=== PATIENT | female | born 1950 | race Caucasian/White ===

== ENCOUNTER 2022-05-30 06:31 | Outpatient (CLI) | payer MEDICARE, BC, SELFPAY ==
--- NOTE | 2022-05-30 08:43 | W.ANESCHARGE ---
Anesthesia Charges Start Date/Time Anesthesia Start Date: 05/30/22 Anesthesia Start Time: 07:34 Stop Date/Time Anesthesia Stop Date: 05/30/22 Anesthesia Stop Time: 08:34 Summary Emergency: No
--- NOTE | 2022-05-30 09:02 | W.ANESCHARGE ---
Anesthesia Charges Start Date/Time Anesthesia Start Date: 05/30/22 Anesthesia Start Time: 07:34 Stop Date/Time Anesthesia Stop Date: 05/30/22 Anesthesia Stop Time: 08:34 Summary Emergency: No
== END 2022-05-30 06:32 | disposition home or self-care (01) ==
PROVIDERS: PCP Family Medicine; Visit Provider Surgery
DX: Z12.11 Encounter for screening for malignant neoplasm of colon (principal)
CPT/HCPCS: 43239; 45380; 45385; 813; 88305

== ENCOUNTER 2022-09-19 13:47 | Outpatient (RCR) | payer MEDICARE, BC, SELFPAY ==
--- NOTE | 2022-07-29 15:14 | URNOTE ---
Received request for prior auth for Denosumab ([id number]). Pt has Medicare primary/BC supplement. Prior authorization is not required as services are based on medical necessity and follow medicare guidelines
[2022-09-10 08:24] LABS: Basophils Absolute Auto 0.06 K/uL (0.00-0.30); Basophils Percent Auto 0.6 % (0.0-3.0); Eosinophils Absolute Auto 0.09 K/uL (0.00-0.50); Eosinophils Percent Auto 0.9 % (0.0-7.0); Hematocrit 34.7 % (33.0-51.0); Hemoglobin* 11.3 gm/dL (12.0-16.0); Immature Reticulocyte Fraction 8.9 % (3.0-15.9); Lymphocytes Percent Auto 67.3 % (20-44); Mean Corpuscular HGB Conc 33 gm/dL (32-36); Mean Corpuscular Hemoglobin 32 pg (26-34); Mean Corpuscular Volume 99 fL (80-100); Monocytes Percent Auto 4.5 % (0.0-11.0); Neutrophils Percent Auto 26.7 % (42.0-72.0); Platelet Count* 254 K/uL (140-440); RDW Coefficient of Variation % 12.6 % (11.5-15.5); Reticulocyte Hemoglobin Equivi 31.1 pg (29.0-35.0); Reticulocyte Percent 1.7 % (0.5-2.0); Reticulocytes Absolute 0.06 # (0.03-0.08); White Blood Count* 10.43 K/uL (4.50-11.00)
[2022-09-10 08:37] LABS: Albumin* 4.3 g/dL (3.3-5.0); Chloride* 101 mmol/L (96-114)
[2022-09-10 08:38] LABS: Potassium* 3.6 mmol/L (3.6-5.1); Sodium* 140 mmol/L (135-149)
[2022-09-10 08:40] LABS: Alkaline Phosphatase* 79 U/L (40-150); Aspartate Amino Transferase* 41 U/L (12-35); Bilirubin Total* 0.4 mg/dL (0.1-1.5); Blood Urea Nitrogen* 19 mg/dL (7-30); Carbon Dioxide* 31 mmol/L (20-32); Estimated Glomerular Filt Rate 61 ml/min; Lactate Dehydrogenase* 491 U/L (313-618); Total Protein* 7.8 g/dL (6.0-8.3)
[2022-09-10 08:41] LABS: Alanine Aminotransferase* 25 U/L (4-35); Calcium* 9.4 mg/dL (8.4-10.6); Glucose* 68 mg/dL (60-115)
[2022-09-10 08:51] LABS: Slide Review Reflex Yes
[2022-09-10 08:52] LABS: Slide Review Acceptable Review (Acceptable)
[2022-09-10 09:16] LABS: Ferritin* 22.2 ng/mL (11.1-264.0)
[2022-09-13 02:14] LABS: Albumin 3.81 g/dL (3.75-5.01); Alpha 1 Globulin 0.36 g/dL (0.19-0.46); Alpha 2 Globulin 0.69 g/dL (0.48-1.05); Immunofixation IFE Done; Immunoglobulin A 89 mg/dL (68-408); Immunoglobulin G 1472 mg/dL (768-1632); Immunoglobulin M 586 mg/dL (35-263); Kappa Qnt Free Light Chains 30.05 mg/L (3.30-19.40); Kappa/Lambda Light Chain Ratio 1.57 (0.26-1.65); Lambda Qnt Free Light Chains 19.09 mg/L (5.71-26.30); Monoclonal Protein 0.66 g/dL; Total Protein, Serum 7.3 g/dL (6.3-8.2)
[2022-09-19] MEDS: DENOSUMAB 60 MG/ML SYRINGE SUBCUT (14:21)
[2022-09-19 15:16] LABS: Iron* 48 ug/dL (37-170)
[2022-09-19 15:26] LABS: Percent Iron Saturation 13 % (20-50); Total Iron Binding Capacity 359 ug/dL (265-497)
== END 2023-03-09 23:59 | disposition home or self-care (01) ==
LOC: CCIC 13:47
PROVIDERS: PCP Family Medicine; Referring Provider Family Medicine; Visit Provider Internal Medicine Hematology & Oncology
DX: D50.9 Iron deficiency anemia, unspecified (principal); D47.2 Monoclonal gammopathy; D72.820 Lymphocytosis (symptomatic)
CPT/HCPCS: 36415; 80053; 82728; 82784; 83520; 83540; 83550; 83615; 84155; 84165; 85025; 85045; 86334; 96372; 99212; 99213; 99214

== ENCOUNTER 2022-10-10 14:56 | Outpatient (CLI) | payer MEDICARE, BC, SELFPAY | END 2022-10-10 14:57 | disposition home or self-care (01) | LOC: NFLDUCREF 14:56 | PROVIDERS: PCP Family Medicine; Visit Provider Student in an Organized Health Care Education/Training Program | DX: R30.0 Dysuria (principal) | CPT/HCPCS: 87086 ==

== ENCOUNTER 2023-01-06 09:58 | Outpatient (CLI) | payer MEDICARE, BC, SELFPAY ==
--- NOTE | 2023-01-06 10:15 | CRLHL7_ITS ---
For Patients: As a result of the Century Cures Act, medical imaging exams and procedure reports are released immediately into your electronic medical record. You may view this report before your referring provider. If you have questions, please contact your health care provider. BILATERAL SCREENING MAMMOGRAM WITH COMPUTER-AIDED DETECTION AND TOMOSYNTHESIS TECHNIQUE: CC and MLO views were obtained. These mammographic images have been obtained using full-field digital technique. These mammographic images were interpreted with the benefit of computer-aided detection. Breast Tomosynthesis was used in this interpretation. COMPARISON FILM: 01/04/22, 06/06/20, 02/02/19 Christophe LUNDBERG. FINDINGS: The breasts are extremely dense, which lowers the sensitivity of mammography IMPRESSION: There is no radiographic evidence for malignancy. ASSESSMENT: BI-RADS Category 2: Benign RECOMMENDATION: Routine screening mammogram in 1 year. A lay language report of this examination will be provided to the patient. Red Peng M.D. Diagnostic/Nuclear Medicine Radiologist [email or web address] BEREKET/Dictated by: Red Peng MD @ 01/06/2023 10:47:00 AM (Electronically Signed)
== END 2023-01-06 09:59 | disposition home or self-care (01) ==
PROVIDERS: PCP Family Medicine; Visit Provider Family Medicine
DX: Z12.31 Encounter for screening mammogram for malignant neoplasm of breast (principal); R92.2 Inconclusive mammogram
CPT/HCPCS: 77063; 77067

== ENCOUNTER 2023-03-26 11:13 | Outpatient (RCR) | payer MEDICARE, BC, SELFPAY ==
[2023-03-26] MEDS: DENOSUMAB 60 MG/ML SYRINGE SUBCUT (11:36)
[2023-03-26 11:40] VITALS: BP 112/63; PULSE 54; RESP 14; TEMP 36.9; O2SAT 98
--- NOTE | 2023-08-26 09:45 | ONC.NURNOTE ---
Called patient to set up appointment for her prolia injection. She notes that she will be getting her injection at [place], and will contact us if she needs to return in the future.
== END 2023-09-22 23:59 | disposition home or self-care (01) ==
LOC: CCIC 11:13
PROVIDERS: PCP Family Medicine; Referring Provider Family Medicine; Visit Provider Internal Medicine Hematology & Oncology
DX: M81.0 Age-related osteoporosis without current pathological fracture (principal)
CPT/HCPCS: 96372; J0897

== ENCOUNTER 2023-05-06 07:05 | Outpatient (CLI) | payer MEDICARE, BC, SELFPAY | END 2023-05-06 07:06 | disposition home or self-care (01) | LOC: INJ CL 07:06 | PROVIDERS: PCP Family Medicine; Visit Provider Family Medicine | DX: M54.16 Radiculopathy, lumbar region (principal); M51.36 Other intervertebral disc degeneration, lumbar region | CPT/HCPCS: 62323; J0702; Q9966 ==

== ENCOUNTER 2023-06-16 10:30 | Outpatient (RCR) | payer MEDICARE, BC, SELFPAY | END 2023-08-13 10:18 | disposition home or self-care (01) | PROVIDERS: PCP Family Medicine; Visit Provider Family Medicine | DX: M47.816 Spondylosis without myelopathy or radiculopathy, lumbar region (principal); M51.26 Other intervertebral disc displacement, lumbar region; M54.17 Radiculopathy, lumbosacral region; Z51.89 Encounter for other specified aftercare | CPT/HCPCS: 97110; 97140; 97161 ==

== ENCOUNTER 2023-10-21 07:24 | Outpatient (CLI) | payer MEDICARE, BC, SELFPAY | END 2023-10-21 07:25 | disposition home or self-care (01) | LOC: INJ CL 07:25 | PROVIDERS: PCP Family Medicine; Visit Provider Family Medicine | DX: M51.36 Other intervertebral disc degeneration, lumbar region (principal); M54.16 Radiculopathy, lumbar region | CPT/HCPCS: 62323; J0702; Q9966 ==

== ENCOUNTER 2024-06-01 07:22 | Outpatient (CLI) | payer MEDICARE, BC, SELFPAY | END 2024-06-01 07:23 | disposition home or self-care (01) | LOC: INJ CL 07:23 | PROVIDERS: PCP Family Medicine; Visit Provider Family Medicine | DX: M54.16 Radiculopathy, lumbar region (principal); M51.36 Other intervertebral disc degeneration, lumbar region | CPT/HCPCS: 62323; J0702; Q9966 ==

== ENCOUNTER 2024-08-19 06:10 | Outpatient (CLI) | payer MEDICARE, BC, SELFPAY ==
[2024-08-19 06:50] VITALS: BP 99/56; PULSE 69; RESP 16; TEMP 36.5; O2SAT 98
[2024-08-19 07:28] VITALS: BP 106/53; PULSE 69; RESP 16; O2SAT 98
--- NOTE | 2024-08-19 07:29 | P.ORPRC_ITS ---
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 COMPLICATIONS: None. SPECIMENS: None. DRAINS: None. PREOPERATIVE ANTIBIOTICS: None INDICATIONS: The patient is a 74-year-old with a history of right hip pain secondary to the above diagnoses. Despite appropriate non operative management, they continue to have symptoms. Operative intervention was recommended. The risks, benefits and expected outcomes were discussed in detail. These included but were not limited to: Infection, bleeding, injury to blood vessel or nerve, venous thromboembolism. All questions were answered to their satisfaction. PROCEDURE: The patient was placed in the lateral decubitus position. The right hip was imaged in the long and short axes with the ultrasound transducer. Normal acoustic landmarks were identified. We then sterilely prepped and draped the skin, and used a sterile probe cover with sterile gel. Local anesthesia was established with 10 mL of a solution containing 2 % lidocaine without epinephrine, 0.5% Marcaine without epinephrine and sodium bicarbonate. An 11 blade was used to incise the skin. The Tenex TX 2 micro tip was used to treat the abductor tendon for a total of 4 minutes and 0 seconds. The incision was Steri-Stripped closed. A dry dressing was applied. Sponge and needle counts were correct x2. The patient tolerated the procedure well. There were no apparent complications. They were discharged to home in satisfactory condition. PLAN: The patient may weightbear as tolerates. Ice, Tylenol and ibuprofen can be used for discomfort. They may ramp up activity as the hip will allow. They will follow up in the office in 6 weeks to assess their progress.
== END 2024-08-19 07:39 | disposition home or self-care (01) ==
PROVIDERS: PCP Family Medicine; Visit Provider Orthopaedic Surgery
DX: M70.61 Trochanteric bursitis, right hip (principal); S76.011A Strain of muscle, fascia and tendon of right hip, initial encounter
CPT/HCPCS: 27006; 76942; J0665